=== PATIENT | female | born 2000 | race Two or more races ===

== ENCOUNTER 2022-10-24 20:19 | Emergency (ER) | payer OTHER ==
[~2022-10-24] VITALS: Ht 162.6 cm; Wt 52.3 kg
[2022-10-24 21:05] VITALS: BP 116/79
[2022-10-24] MEDS ORDERED: ACET-1158 PO (21:53)
[2022-10-24] MEDS ORDERED: AZITTAB PO (21:53)
[2022-10-24] MEDS ORDERED: PRED20TA2 PO (21:53)
[2022-10-24] MEDS ORDERED: cefTRIAXone SOD 1,000 MG VL IM ONE (22:00)
[2022-10-24] MEDS ORDERED: methylPREDNISolone SOD SUCC 125 MG/2 ML VL IM ONE (22:00)
== END 2022-10-24 23:50 | disposition home or self-care (01) ==
LOC: ER 20:19
DX: J02.9 Acute pharyngitis, unspecified (principal); Z88.0 Allergy status to penicillin
CPT/HCPCS: 96372; 99284; J0696; J2930